=== PATIENT | female | born 1935 | race Caucasian/White ===

== ENCOUNTER 2024-01-23 10:27 | Outpatient (CLI) | payer MEDICARE, BC, SELFPAY ==
[2024-01-23 15:29] LABS: Appearance Urine Clear (Clear); Bacteria Urine None Seen /hpf; Bilirubin Urine Negative (Negative); Blood Urine Negative (Negative); Color Urine Yellow (Yellow); Glucose Urine UA Negative (Negative); Ketones Urine Negative (Negative); Leukocyte Esterase Ur 1+ LEU/UL (Negative); Need Manual Microscopic Reviewed; Nitrate Urine Negative (Negative); Non Pathogenic Casts 0-2; Protein Urine Negative (Negative); RBC Urine 0-2 /hpf (0-2); Squamous Epithelial Cell Urine None Seen /hpf (Few); Urobilinogen Urine 0.2 mg/dL (<2.0); WBC Urine 0-5 /hpf (0-3); pH Urine 7.5 (5.0-9.0)
[2024-01-23 15:36] LABS: Add Urine Microscopic? YES
== END 2024-01-23 10:28 | disposition home or self-care (01) ==
PROVIDERS: PCP Family Medicine; Visit Provider Family Medicine
DX: D64.9 Anemia, unspecified (principal); E78.2 Mixed hyperlipidemia; F41.9 Anxiety disorder, unspecified; I10 Essential (primary) hypertension
CPT/HCPCS: 81001

== ENCOUNTER 2024-05-21 11:59 | Emergency (ER) | payer MEDICARE, BC, SELFPAY ==
--- NOTE | ~2024-05-21 | XR_ITS ---
Thoracic spine: Clinical Indication: Pain AP and lateral views were performed. No fracture is seen. There is relative kyphosis of the thoracic spine. There is moderate degenerative disc narrowing throughout the thoracic spine. Paravertebral soft tissues appear normal. Impression: Moderate degenerative spondylosis. No acute fracture or sublocation evident. Reviewed, dictated and finalized at [facility]. Impression: Moderate degenerative spondylosis. No acute fracture or sublocation evident.
--- NOTE | ~2024-05-21 | XR_ITS ---
AP and oblique views of the right ribs Clinical History: Pain Findings: There are acute fractures of the posterior right seventh and eighth ribs. Lungs are clear, without focal consolidation or pleural effusion. Cardiomediastinal contour is within normal limits. S oft tissues are unremarkable. Impression: Acute fractures of the posterior right seventh and eighth ribs. Clear lungs. Reviewed, dictated and finalized at location . Impression: Acute fractures of the posterior right seventh and eighth ribs. Clear lungs.
--- NOTE | ~2024-05-21 | XR_ITS ---
Right Shoulder Technique: AP and scapular Y views were obtained. Clinical History: Pain Findings: No fracture or dislocation is seen. Osseous alignment is anatomic. The glenohumeral and acr omioclavicular joints demonstrate mild degenerative change. Soft tissues are unremarkable. Impression: Mild degenerative changes, as above. Reviewed, dictated and finalized at location . Impression: Mild degenerative changes, as above.
[2024-05-21 12:04] VITALS: BP 141/74; PULSE 73; RESP 18; O2SAT 97
--- NOTE | 2024-05-21 12:35 | ED.FALL ---
HPI - Fall General Chief Complaint: Fall Stated Complaint: fall Time Seen by Provider: 05/21/24 12:02 History of Present Illness HPI Narrative: Patient is an 88-year-old female who presents ER with posterior right shoulder pain and right-sided rib discomfort. Patient was closing her ports door when she fell backwards 1 week ago. Did not strike her head or lose consciousness. She has bruising over her right hip but has no pain there no difficulty with ambulation. No pain with deep breath. No dyspnea. No hemoptysis. No fevers or chills or sweats. She maintains full range of motion of the right shoulder. Just has discomfort with certain movements. Related Data Home Medications Medication Instructions Recorded Confirmed aspirin 81 mg tablet,delayed 81 mg PO DAILY 08/15/19 01/23/24 release multivitamin 1 tablet PO DAILY 08/15/19 01/23/24 cetirizine 10 mg tablet (Zyrtec) 10 mg PO DAILY 09/06/19 01/23/24 calcium carbonate 600 mg PO DAILY 07/18/22 01/23/24 ferrous sulfate 325 mg (65 mg 325 mg PO DAILY 07/18/22 01/23/24 iron) tablet Allergies Allergy/AdvReac Type Severity Reaction Status Date / Time Sulfa (Sulfonamide Allergy Unknown unknown Verified 12/07/23 10:50 Antibiotics) Review of Systems Review of Systems: All systems reviewed & are unremarkable except as noted in HPI and below Constitutional: Constitutional: Reports no additional constitutional complaints ENT: Reports system reviewed and no additional complaints, except as documented Cardiovascular: Cardiovascular: Reports no additional cardiovascular complaints Respiratory: Respiratory: Reports no additional respiratory complaints Musculoskeletal: Musculoskeletal: Reports back pain, Reports myalgias, Reports arthralgias, Denies joint swelling and Denies muscle cramps Integumentary/Breasts: Skin/Breast: Reports system reviewed and no additional complaints, except as docu [facility] Past Medical History Medical History (Updated 05/21/24 @ 14:05 by Malick Donaldson MD) Anemia Anxiety Arthritis H/O: CVA (cerebrovascular accident) Hemiplegia, unspecified affecting unspecified side HTN (hypertension) Kyphosis Left hand fracture Left knee DJD Left knee pain Mixed hyperlipidemia Poor balance Right tibial fracture x2 Shingles Uterine mass Weakness Surgical History Surgical History H/O: hysterectomy History of open reduction and internal fixation (ORIF) procedure Right lower leg x2 History of total right knee replacement Hx of tonsillectomy Family History Family History Other Diabetes mellitus Family history of arthritis Family history of malignant neoplasm Hypertension Social History Social History Smoking status: Never smoker Second hand tobacco smoke exposure: No Alcohol intake: never Substance use: never Substance use type: does not use Living arrangements: with family Occupation/Education: retired Gender identity (if verbalized by the patient): Female Sexual Orientation (if Verbalized by the Patient): Straight or Heterosexual Exam Narrative: GENERAL: Well-appearing, well-nourished, and in no acute distress. HEAD: Normocephalic, atraumatic. ENT: Mucous membranes moist. NECK: Supple. CHEST: Clear to auscultation. No respiratory distress. No point tenderness or bruising. HEART: Regular rate and rhythm. Normal peripheral pulses. EXTREMITIES: Normal range of motion. No edema. Contussion over right iliac wing SKIN: Warm, dry, no rash. NEURO: Alert and oriented x3. PSYCH: Normal mood and affect. Course Course Emergency Course: Patient resting comfortably. Informed of imaging results including her rib fractures on the right side at 7. 8. Patient without hypoxia. Pain controlled with Tylenol at home. Return precautions given. Vital Signs Vi
[2024-05-21 14:40] VITALS: TEMP 36.6
== END 2024-05-21 14:44 | disposition home or self-care (01) ==
PROVIDERS: Emergency Provider Emergency Medicine; PCP Family Medicine
DX: S22.41XA Multiple fractures of ribs, right side, initial encounter for closed fracture (principal); Z96.651 Presence of right artificial knee joint; Z90.710 Acquired absence of both cervix and uterus; M47.814 Spondylosis without myelopathy or radiculopathy, thoracic region; W18.39XA Other fall on same level, initial encounter
CPT/HCPCS: 71046; 71100; 72072; 73030; 99284

== ENCOUNTER 2024-07-24 12:09 | Outpatient (CLI) | payer MEDICARE, BC, SELFPAY ==
[2024-07-24 13:08] LABS: Alanine Aminotransferase 19 U/L (6-35); Alkaline Phosphatase 82 U/L (38-126); Anion Gap 7 mmol/L (4-12); Aspartate Amino Transferase 29 U/L (14-36); Bilirubin,Total 0.7 mg/dL (0.2-1.3); Blood Urea Nitrogen 12 mg/dL (7-17); Calcium 9.2 mg/dL (8.4-10.2); Carbon Dioxide 25 mmol/L (22-30); Chloride 98 mmol/L (98-107); Estimated Glomerular Filt Rate > 60; Glucose 95 mg/dL (65-110); Sodium 130 mmol/L (137-145)
== END 2024-07-24 12:10 | disposition home or self-care (01) ==
PROVIDERS: PCP Family Medicine; Visit Provider Family Medicine
DX: I10 Essential (primary) hypertension (principal)
CPT/HCPCS: 36415; 80053

== ENCOUNTER 2025-01-28 10:11 | Outpatient (CLI) | payer MEDICARE, BC, SELFPAY ==
[2025-01-28 10:43] LABS: Hematocrit 39.4 % (37.0-47.0); Hemoglobin 12.6 g/dL (12.0-15.0); Mean Corpuscular Hemoglobin 27.3 pg (26-34); Mean Corpuscular Volume 85.3 fl (80-100); Platelet Count Result 359 k/mm3 (150-375); Red Blood Count 4.62 M/mm3 (4.2-5.4); Red Cell Distribution Width 14.5 % (11.5-14.5); White Blood Count 6.6 K/mm3 (4.5-10.0)
--- OUTSIDE RECORDS SUMMARY | 2025-01-28 10:52 | XMS_ITS ---
Author Name Auto Generated, Auto Generated Organization [facility] Address [address] [place] [address] Phone [phone] Care Team Providers Care Interventional Physician Name Role Phone Braydon Castro Unavailable Santiago Feliciano Unavailable [phone] Functional Status No Results Mental Status No Results Allergies and Intolerances Name Onset Date Reaction Severity Sulfa (Sulfonamide Antibiotics) (Allergy) Sun 14:23:00 EDT 2018 Medications Medication Directions Start Date End Date aspirin 81 mg chewable tablet 1tab (TABLET,CHEWABLE) Oral Every 1 Day SunMay 12 01:00:00 EDT 2018Jun 16 01:00:00 EDT 2018 Tylenol 325 mg capsule 2caps (CAPSULE) O ral Every 6 Hours, PRN SunMay 12 01:00:00 EDT 2018Jun 16 01:00:00 EDT 2018 Calcium 600 + D(3) 600 mg (1,500 mg)-200 unit tablet 1tab (TABLET) Oral Every 1 Day SunMay 12 01:00:00 EDT 2018Jun 16 01:00:00 ED2018 atorvastatin 40 mg tablet 1tab (TABLET) Oral Every 1 Day SunMay 12 01:00:00 EDT 2018Jun 16 01:00:00 EDT 2018 ferrous sulfate 324 mg (65 mg iron) tablet,delayed release 1tab (TABLET, DELAYED RELEASE (ENTERIC COATED Oral Every 1 Day SunMay 12 01:00:00 EDT 2018Jun 16 01:00:00 EDT 2018 fenofibrate 160 mg tablet 1tab (TABLET) Oral Every 1 Day SunMay 12 01:00:00 EDT 2018Jun 16 01:00:00 EDT 2018 fondaparinux 2.5 mg/0.5 mL subcutaneous solution syringe 1 (SYRINGE (ML)) Subcutaneous Every 1 Day SunMay 12 01:00:00 ED2018May 14 00:59:00 ED2018 Centrum Silver Ultra Women's tablet 1tab (TABLET) Oral Every 1 Day SunMay 12 01:00:00 ED2018Jun 16 01:00:00 ED2018 lisinopril 2.5 mg tablet 1tab (TABLET) O ral Every 1 Day SunMay 12 01:00:00 ED2018Jun 16 01:00:00 ED2018 clopidogrel 75 mg tablet 1tab (TABLET) O ral Every 1 Day SunMay 14 01:00:00 ED2018 [place] Jun 15 00:59:00 ED2018 Miralax 17 gram/dose oral powder 1 pkt (POWDER (GRAM)) Oral Every 1 Day SunMay 12 01:00:00 ED2018Jun 16 01:00:00 ED2018 escitalopram 5 mg tablet 1tab (TABLET) O ral Every 1 Day SunMay 12 01:00:00 ED2018Jun 16 01:00:00 ED2018 ALPRAZolam 0.25 mg tablet 1tab (TABLET) Oral 2 Times Daily, PRN SunMay 12 01:00:00 ED2018Jun 16 01:00:00 ED2018 ALPRAZolam 0.25 mg tablet 1 tab TABLET O ral PRN 2 Times Daily anxiety SunMay 01 13:00:00 2018May 10 01:00:00 2018 escitalopram 5 mg tablet 1 tab TABLET Or al 1 Time Daily depression SunMay 01 13:00:00 2018May 10 01:00:00 ED2018 acetaminophen 325 mg tablet 650 mg TABLET Oral PRN Every 6 Hours pain rate 1-3 SunApr 30 14:25:00 2018May 10 01:00:00 ED2018 ALPRAZolam 0.25 mg tablet 1 tab TABLET O ral PRN 2 Times Daily anxiety SunApr 30 14:25:00 2018May 01 13:19:00 ED2018 Aspirin Childrens 81 mg chewable tablet 1 tab TABLET,CHEWABLE Oral 1 Time Daily SunMay 01 09:00:00 2018May 10 01:00:00 ED2018 atorvastatin 40 mg tablet 1 tab TABLET O ral 1 Time Daily SunMay 01 09:00:00 2018May 10 01:00:00 ED2018 Calcium 600 + D(3) 600 mg calcium-200 unit capsule 1 cap CAPSULE Oral 1 Time Daily SunMay 01 09:00:00 ED2018May 10 01:00:00 ED2018 Lexapro 5 mg tablet 1 tab TABLET Oral 1 Time Daily SunMay 01 09:00:00 ED2018May 01 13:22:00 ED2018 fenofibrate 160 mg tablet 1 tab TABLET O ral 1 Time Daily SunMay 01 09:00:00 ED2018May 10:00:00 ED2018 ferrous sulfate 324 mg (65 mg iron) tablet,delayed release 1 tab TABLET, DELAYED RELEASE (ENTERIC COATED) Oral 1 Time Daily SunMay 01 09:00:00 ED2018May 10:00:00 ED2018 fondaparinux 2.5 mg/0.5 mL subcutaneous solution syringe 2.5 mg SYRINGE (ML) Subcutaneous Every 24 Hours for 13 Days blood thinner SunMay 01 09:00:00 ED2018May 10 01:00:00 ED2018 lisinopril 2.5 mg tablet 1 tab TABLET Or al 1 Time Daily SunMay 01 09:00:00 ED2018May 10 01:00:00 ED2018 Centrum Silver Ultra Women's tablet 1 tab TABLET Oral 1 Time Daily SunMay 01 09:00:00 ED2018May 10 01:00:00 ED2018 polyethylene glycol 3350 17 gram oral powder packet 17 gram POWDER IN PACKET (EA) Oral 1 Time Daily constipation SunMay 01 09:00:00 ED2018May 10 01:00:00 ED2018 clopidogrel 75 mg tablet 1 tab TABLET Or al 1 Time Daily for 30 Days blood thinner SunMay 14 09:00:00 EDT 2018May 10 01:00:00 EDT 2018 TUBErsol 5 tub. unit/0.1 mL intradermal injection solution 0.1 ml VIAL (ML) Intradermal 1 Time Weekly for 2 Weeks (PPD) 1st injection upon admission. Read between 48 and 72 hours and give 2nd injection 1 week after the 1st if result is negative. If positive result, proceed with chest x-ray to rule out active disease. SunMay 01 13:00:00 ED2018May 10 01:00:00 EDT 2018 TUBErsol 5 tub. unit/0.1 mL intradermal injection solution Read Results VIAL (ML) Other 1 Time Weekly for 2 Weeks Read results between 48-72 hours after 1st and 2nd 1 week apart. If positive do chest x-ray to rule out active disease. SunMay 03 13:00:00 EDT 2018 Sat May 10 01:00:00 EDT 2018 Problems Active Concerns * Displaced intertrochanteric fracture of right femur, subsequent encounter for closed fracture with routine healing* Code: * Start Date: SunApr 30 00:00:00 EDT 2018 * End Date: * Text: * Essential (primary) hypertension* Code: * Start Date: SunApr 30 00:00:00 EDT 2018 * End Date: * Text: * Iron deficiency anemia secondary to blood loss (chronic)* Code: * Start Date: SunApr 30 00:00:00 EDT 2018 * End Date: * Text: * Hyperlipidemia, unspecified* Code: * Start Date: SunApr 30 00:00:00 EDT 2018 * End Date: * Text: * Anxiety disorder, unspecified* Code: * Start Date: SunApr 30 00:00:00 EDT 2018 * End Date: * Text: * Presence of other bone and tendon implants* Code: * Start Date: SunApr 30 00:00:00 EDT 2018 * End Date: * Text: * Presence of right artificial knee joint* Code: * Start Date: SunApr 30 00:00:00 EDT 2018 * End Date: * Text: * Other specified fracture of right pubis, subsequent encounter for fracture with routine healing* Code: * Start Date: SunApr 30 00:00:00 EDT 2018 * End Date: * Text: * Repeated falls* Code: * Start Date: SunApr 30 00:00:00 EDT 2018 * End Date: * Text: * Hemiplegia and hemiparesis following cerebral infarction affecting right dominant side* Code: * Start Date: SunApr 30 00:00:00 EDT 2019 * End Date: * Text: * Constipation, unspecified* Code: * Start Date: SunApr 30 00:00:00 EDT 2018 * End Date: * Text: * Acute posthemorrhagic anemia* Code: * Start Date: SunApr 30 00:00:00 EDT 2018 * End Date: * Text: Reason for Referral Past Medical History
[2025-01-28 10:53] LABS: Add Urine Microscopic? YES; Appearance Urine Clear (Clear); Bacteria Urine None Seen /hpf; Bilirubin Urine Negative (Negative); Blood Urine Negative (Negative); Color Urine Yellow (Yellow); Glucose Urine UA Negative (Negative); Ketones Urine Negative (Negative); Leukocyte Esterase Ur 1+ LEU/UL (Negative); Need Manual Microscopic Reviewed; Nitrate Urine Negative (Negative); Non Pathogenic Casts 0-2; Protein Urine Negative (Negative); RBC Urine 0-2 /hpf (0-2); Specific Grav Ur 1.008 (1.001-1.035); Squamous Epithelial Cell Urine None Seen /hpf (Few); Urobilinogen Urine 0.2 mg/dL (<2.0); WBC Urine 0-5 /hpf (0-3)
[2025-01-28 10:55] LABS: Alanine Aminotransferase 19 U/L (6-35); Albumin Level 4.3 g/dL (3.5-5.1); Alkaline Phosphatase 68 U/L (38-126); Anion Gap 10 mmol/L (4-12); Aspartate Amino Transferase 29 U/L (14-36); Bilirubin,Total 0.4 mg/dL (0.2-1.3); Blood Urea Nitrogen 11 mg/dL (7-17); Calcium 9.4 mg/dL (8.4-10.2); Carbon Dioxide 26 mmol/L (22-30); Chloride 96 mmol/L (98-107); Cholesterol 141 mg/dL (0-200); Estimated Glomerular Filt Rate > 60; Glucose 89 mg/dL (65-110); HDL Direct 62 mg/dL; Potassium 4.3 mmol/L (3.4-5.0); Sodium 132 mmol/L (137-145); Triglycerides 76 mg/dL (<150)
[2025-01-28 11:06] LABS: LDL Cholesterol Direct 47 mg/dL
== END 2025-01-28 10:12 | disposition home or self-care (01) ==
LOC: ANHLAB 10:14
PROVIDERS: PCP Family Medicine; Visit Provider Family Medicine
DX: I69.30 Unspecified sequelae of cerebral infarction (principal); E78.2 Mixed hyperlipidemia; I10 Essential (primary) hypertension; R53.83 Other fatigue
CPT/HCPCS: 36415; 80053; 80061; 81001; 84443; 85027

== ENCOUNTER 2025-05-05 11:20 | Outpatient (CLI) | payer MEDICARE, BC, SELFPAY ==
--- NOTE | ~2025-05-05 | US_ITS ---
EXAMINATION:US venous doppler LE RT INDICATION:Localized edema TECHNIQUE: Multiple grayscale, color flow and Doppler images of the right lower extremity deep venous systems were obtained and reviewed. COMPARISON:No prior studies for comparison. FINDINGS: The common femoral, superficial femoral and popliteal veins demonstrate normal respiratory variation, augmentation and compressibility. Color flow is also seen within the posterior tibial, pe roneal, greater saphenous and profunda veins. IMPRESSION: 1: No lower extremity deep venous thrombosis. Reviewed, dictated and finalized at location A.
--- OUTSIDE RECORDS SUMMARY | 2025-05-05 12:13 | XMS_ITS ---
Author Name Auto Generated, Auto Generated Organization [facility] Address [address] [place] [address] Phone [phone] Care Team Providers Care Derrick Helper Name Role Phone Braydon Castro Unavailable [phone] Santiago Feliciano Unavailable [phone] Functional Status No Results Mental Status [...] Every 1 Day SunMay 14 01:00:00 ED2018 [place] Jun 15 00:59:00 ED2018 Miralax 17 gram/dose [...]
--- OUTSIDE RECORDS SUMMARY | 2025-05-05 12:13 | XMS_ITS ---
Author Name Auto Generated, Auto Generated Organization [facility] Address [address] [place] [address] Phone [phone] Care Team Providers Care Prosthetic Aides Teacher Name Role Phone Braydon Castro Unavailable Santiago Feliciano Unavailable Functional Status No Results Mental Status No [...] Every 1 Day SunMay 14 01:00:00 ED2018 [place] Jun 15 00:59:00 ED2018 Miralax 17 gram/dose [...]
== END 2025-05-05 11:21 | disposition home or self-care (01) ==
PROVIDERS: PCP Family Medicine; Visit Provider Family Medicine
DX: R60.0 Localized edema (principal)
CPT/HCPCS: 93971

== ENCOUNTER 2025-07-23 11:34 | Emergency (ER) | payer MEDICARE, BC, SELFPAY ==
--- NOTE | ~2025-07-23 | XR_ITS ---
EXAMINATION: XR chest 2V, 07/23/2025 12:20 CDT HISTORY: weakness COMPARISON: No comparisons available. Technique: 2 views obtained. Findings: Mild pulmonary venous congestion. No pneumothorax. Mild cardiomegaly. Large hiatal hernia. Remote right rib fractures. Impression: Mild CHF Reviewed, dictated and finalized at location P. Impression: Mild CHF
[2025-07-23 11:32] VITALS: BP 140/82; PULSE 83; RESP 20; TEMP 36.5; O2SAT 97
--- NOTE | 2025-07-23 11:38 | ECG_ITS ---
Test Date: 2025-07-23 11:48:32 Measurements Intervals Shafer Rate: 80 P: 12 VA: 141 QRS: 11 QRSD: 90 T: 37 QT: 363 QTc: 420 Interpretive Statements SINUS RHYTHM EARLY PRECORDIAL R/S TRANSITION BASELINE ARTIFACT- I, II, III, AVR, AVL, AVF, V1-V6 BORDERLINE ECG No previous ECG available for comparison Electronically Signed On 07-23-2025 11:50:33 CDT by Pravin Saavedra D.O.
[2025-07-23 11:51] LABS: Hematocrit 36.2 % (37.0-47.0); Hemoglobin 11.7 g/dL (12.0-15.0); Immature Granulocyte Percent A 0.3 % (0-0.5); Lymphocytes Absolute Auto 1.08 K/mm3 (0.9-3.2); Mean Corpuscular HGB Conc 32.3 g/dl (32-36); Mean Corpuscular Hemoglobin 26.8 pg (26-34); Mean Corpuscular Volume 82.8 fl (80-100); Nucleated Red Blood Cells Absolute Auto 0.000 K/mm3 (0.0-0.012); Nucleated Red Blood Cells Perc 0.0 % (0.0-0.2); Platelet Count Result 254 k/mm3 (150-375); Red Blood Count 4.37 M/mm3 (4.2-5.4); White Blood Count 6.1 K/mm3 (4.5-10.0)
[2025-07-23 12:12] LABS: Alanine Aminotransferase 17 U/L (6-35); Albumin Level 3.7 g/dL (3.5-5.1); Alkaline Phosphatase 74 U/L (38-126); Anion Gap 9 mmol/L (4-12); Aspartate Amino Transferase 38 U/L (14-36); Bilirubin,Total 0.4 mg/dL (0.2-1.3); Blood Urea Nitrogen 10 mg/dL (7-17); Calcium 8.5 mg/dL (8.4-10.2); Carbon Dioxide 22 mmol/L (22-30); Chloride 96 mmol/L (98-107); Estimated CRCL calculation 66 ml/min; Estimated Glomerular Filt Rate > 60; Glucose 93 mg/dL (65-110); Potassium 4.0 mmol/L (3.4-5.0); Sodium 127 mmol/L (137-145); Total Protein 6.3 g/dL (6.3-8.2)
[2025-07-23 12:55] LABS: Add Urine Microscopic? NO; Appearance Urine Clear (Clear); Glucose Urine UA Negative (Negative); Leukocyte Esterase Ur Negative LEU/UL (Negative); Nitrate Urine Negative (Negative); Specific Grav Ur 1.010 (1.001-1.035)
[2025-07-23 13:52] VITALS: BP 131/72; PULSE 72; RESP 22; O2SAT 98
--- NOTE | 2025-07-23 14:31 | ED.WEAKNESS ---
HPI - Weakness General Chief complaint: Weakness Stated complaint: weakness Time Seen by Provider: 07/23/25 12:30 Source: patient Mode of arrival: EMS Limitations: no limitations History of Present Illness HPI Narrative: 89-year-old with a history of hypertension, hyperlipidemia status post right knee replacement 22 years ago in was brought in from [facility] by ambulance with the complaints of fall generalized weakness. Patient states that she did not want to come but she was forced to come to the ER. She denies having any chest pain or shortness of breath. No history of nausea, vomiting or diarrhea. MD Complaint: generalized weakness Onset (ago): day(s) (1) Location: generalized Severity: moderate Relieving factors: none Exacerbating factors: none Related Data Home Medications ?Medication ?Instructions ?Recorded ?Confirmed ?Last Taken ?Type aspirin 81 mg tablet,delayed 81 mg PO DAILY 08/15/19 05/05/25 Unknown History release multivitamin 1 tablet PO DAILY 08/15/19 05/05/25 Unknown History cetirizine 10 mg tablet (Zyrtec) 10 mg PO DAILY 09/06/19 05/05/25 Unknown History calcium carbonate 600 mg PO DAILY 07/18/22 05/05/25 Unknown History ferrous sulfate 325 mg (65 mg 325 mg PO DAILY 07/18/22 05/05/25 Unknown History iron) tablet Allergies Allergy/AdvReac Type Severity Reaction Status Date / Time Sulfa (Sulfonamide Allergy Unknown unknown Verified 06/08/25 14:45 Antibiotics) Review of Systems Review of Systems: All systems reviewed & are unremarkable except as noted in HPI and below Constitutional: Constitutional: Reports no additional constitutional complaints Eyes: Eyes: Reports no additional eye complaints ENT: Reports system reviewed and no additional complaints, except as documented Cardiovascular: Cardiovascular: Reports no additional cardiovascular complaints Respiratory: Respiratory: Reports no additional respiratory complaints Gastrointestinal: Gastrointestinal: Reports no additional gastrointestinal complaints Musculoskeletal: Musculoskeletal: Reports no additional musculoskeletal complaints PMFSH Past Medical History Medical History Effusion of knee joint Leg length discrepancy Foot drop Valgus deformity, not elsewhere classified, left knee Poor balance Weakness Left knee DJD Kyphosis Left knee pain Uterine mass Shingles Left hand fracture Right tibial fracture x2 Arthritis HTN (hypertension) H/O: CVA (cerebrovascular accident) Hemiplegia, unspecified affecting unspecified side Anemia Mixed hyperlipidemia Anxiety Surgical History Surgical History History of open reduction and internal fixation (ORIF) procedure Right lower leg x2 History of total right knee replacement H/O: hysterectomy Hx of tonsillectomy Family History Family History Other Diabetes mellitus Family history of arthritis Family history of malignant neoplasm Hypertension Social History Social History Smoking status: Never smoker Second hand tobacco smoke exposure: No Alcohol intake: never Substance use: never Substance use type: does not use Do You Feel Safe in your Home?: Yes Lack of Transportation: No Lack of Food: Never True Current Housing: I Have Housing Concerned About Future Housing: No Difficulty Paying Gas/Electric Bills: No Difficulty Paying for Meds: No Currently Unemployed: YES Education: Don't Know Difficulty w/ Childcare or Family Care: No Living arrangements: with family Occupation/Education: retired Gender identity (if verbalized by the patient): Female Sexual Orientation (if Verbalized by the Patient): Straight or Heterosexual Exam Narrative: GENERAL: Well-appearing, well-nourished, and in no acute distress. HEAD: Normocephalic, atraumatic. EYES: PERRLA and EOMI. ENT: Nares clear, no rhinorrhea or epistaxis. Mucous membranes moist. NECK: Supple. CHEST: Clear to auscultation. No respiratory distress. HEART: Regular rate and rhythm. No murmur heard. Normal peripheral pulses. ABDOMEN: Soft, nontender, nondistended, normal active bowel sounds. EXTREMITIES: Normal range of motion. No edema. Limited ROM of the right knee SKIN: Warm, dry, has diaper rash. NEURO: No focal deficits. Alert and oriented x3. PSYCH: Normal mood and affect. Course Course Emergency Course: Informed patient's daughter and patient about her lab work, chest x-ray findings. A shared decision made to discharge her back to the correction consider physical therapy. Also advised frequent change in diapers or add a close and use antifungal cream or powder as prescribed Vital Signs Vital signs: Vital Signs Temperature 36.5 C 07/23/25 11:32 Pulse Rate 83 07/23/25 11:32 Respiratory Rate 20 07/23/25 11:32 Blood Pressure 140/82 07/23/25 11:32 Pulse Oximetry 97 07/23/25 11:32 Oxygen Delivery Room Air 07/23/25 11:32 Temperature 36.5 C 07/23/25 11:32 Pulse Rate 72 07/23/25 13:52 Respiratory Rate 22 H 07/23/25 13:52 Blood Pressure 131/72 07/23/25 13:52 Pulse Oximetry 98 07/23/25 13:52 Oxygen Delivery Room Air 07/23/25 11:32 MDM - Weakness Differential Diagnosis Differential diagnosis: Likely hypoglycemia, sepsis and dehydration Medical Records Attestation: I reviewed the patient's medical records. Lab Data Attestation: I reviewed the patient's lab results. 07/23/25 11:44 07/23/25 11:44 Labs: Lab Results 07/23/25 07/23/25 Range/Units 11:44 12:42 WBC 6.1 (4.5-10.0) K/mm3 RBC 4.37 (4.2-5.4) M/mm3 Hgb 11.7 L (12.0-15.0) g/dL Hct 36.2 L (37.0-47.0) % MCV 82.8 (80-100) fl MCH 26.8 (26-34) pg MCHC 32.3 (32-36) g/dl RDW 14.6 H (11.5-14.5) % Plt Count 254 (150-375) k/mm3 MPV 8.8 (7.4-10.4) fl Immature Gran % (Auto) 0.3 (0-0.5) % Neut % (Auto) 65.3 (45.5-73.1) % Lymph % (Auto) 17.6 L (18.3-44.2) % [place] % (Auto) 15.8 H (2.6-8.5) % Eos % (Auto) 0.7 (0-4.4) % Baso % (Auto) 0.3 (0.2-1.2) % Lymph # (Auto) 1.08 (0.9-3.2) K/mm3 [place] # (Auto) 1.0 H (0.1-0.6) K/mm3 Eos # (Auto) 0.0 (0-0.3) K/mm3 Baso # (Auto) 0.0 (0.0-0.1) K/mm3 Abs Immat Gran (auto) 0.02 (0.00-0.031) K/mm3 Absolute Neuts (auto) 4.0 (1.3-6.7) K/mm3 Absolute Nucleated RBC 0.000 (0.0-0.012) K/mm3 Nucleated RBC % 0.0 (0.0-0.2) % Sodium 127 L (137-145) mmol/L Potassium 4.0 (3.4-5.0) mmol/L Chloride 96 L (98-107) mmol/L Carbon Dioxide 22 (22-30) mmol/L Anion Gap 9 (4-12) mmol/L BUN 10 (7-17) mg/dL Creatinine 0.38 L (0.7-1.0) mg/dL Estim Creat Clear Calc 66 ml/min Estimated GFR > 60 (59 - ) Glucose 93 (65-110) mg/dL Calcium 8.5 (8.4-10.2) mg/dL Total Bilirubin 0.4 (0.2-1.3) mg/dL AST 38 H (14-36) U/L ALT 17 (6-35) U/L Alkaline Phosphatase 74 (38-126) U/L Total Protein 6.3 (6.3-8.2) g/dL Albumin 3.7 (3.5-5.1) g/dL Urine Color Yellow (Yellow) Urine Appearance Clear (Clear) Urine pH 7.0 (5.0-9.0) Ur Specific [place] 1.010 (1.001-1.035) Urine Protein Negative (Negative) mg/dL Urine Glucose (UA) Negative (Negative) mg/dL Urine Ketones Negative (Negative) mg/dL Ur Blood (Man) Negative (Negative) Urine Nitrate Negative (Negative) Urine Bilirubin Negative (Negative) Urine Urobilinogen 1.0 (<2.0) mg/dL Leukocyte Esterase Rfl Negative (Negative) NORBERT/UL Imaging Data Radiologist's impression: ITS Impressions Chest X-Ray 07/23/25 12:30 Impression: Mild CHF Discharge Plan Discharge Clinical Impression: Weakness, Acute hyponatremia, Salud albicans infection Patient Disposition: Home Condition: Stable Instructions: Diaper Rash (ED), Weakness (ED) Patient Language: Luxembourgish Prescriptions: New nystatin 100,000 unit/gram powder 1 applic topical BID Qty: 60 0RF No Action ferrous sulfate 325 mg (65 mg iron) tablet 325 mg PO DAILY calcium carbonate 600 mg calcium (1,500 mg) tablet 600 mg PO DAILY furosemide [Lasix] 20 mg tablet 20 mg PO QAM Qty: 30 0RF multivitamin Tablet 1 tablet PO DAILY aspirin 81 mg tablet,delayed release (DR/EC) 81 mg PO DAILY cetirizine [Zyrtec] 10 mg Tablet 10 mg PO DAILY lisinopril 2.5 mg tablet 2.5 mg PO DAILY Qty: 90 1RF atorvastatin 40 mg tablet 40 mg PO DAILY Qty: 90 2RF escitalopram oxalate 5 mg tablet See Rx Instructions .ROUTE .COMPLEX Qty: 90 2RF Dose Instruction: TAKE 1 TABLET BY MOUTH EVERY DAY Rx Instructions: TAKE 1 TABLET BY MOUTH EVERY DAY clopidogrel 75 mg tablet See Rx Instructions .ROUTE .COMPLEX Qty: 90 2RF Dose Instruction: TAKE 1 TABLET BY MOUTH EVERY DAY Rx Instructions: TAKE 1 TABLET BY MOUTH EVERY DAY fenofibrate 160 mg tablet See Rx Instructions .ROUTE .COMPLEX Qty: 90 0RF Dose Instruction: TAKE 1 TABLET BY MOUTH EVERY DAY Rx Instructions: TAKE 1 TABLET BY MOUTH EVERY DAY polyethylene glycol 3350 [Miralax] 17 gram/dose powder 17 g PO DAILY Qty: 119 5RF Follow-up/Referrals: Santiago Feliciano MD [Primary Care Provider, Family Practice] Time of Disposition: 14:33
== END 2025-07-23 15:49 ==
PROVIDERS: Emergency Provider Family Medicine; PCP Family Medicine
DX: B37.89 Other sites of candidiasis (principal); I10 Essential (primary) hypertension; E78.5 Hyperlipidemia, unspecified; E78.2 Mixed hyperlipidemia; R53.1 Weakness; E87.1 Hypo-osmolality and hyponatremia
CPT/HCPCS: 36415; 71046; 80053; 81003; 85025; 93005; 99283

== ENCOUNTER 2025-08-05 11:20 | Outpatient (CLI) | payer MEDICARE, BC, SELFPAY ==
[2025-08-05 12:07] LABS: Alanine Aminotransferase 15 U/L (6-35); Albumin Level 3.9 g/dL (3.5-5.1); Alkaline Phosphatase 90 U/L (38-126); Anion Gap 7 mmol/L (4-12); Aspartate Amino Transferase 25 U/L (14-36); Bilirubin,Total 0.4 mg/dL (0.2-1.3); Blood Urea Nitrogen 11 mg/dL (7-17); Calcium 9.1 mg/dL (8.4-10.2); Carbon Dioxide 25 mmol/L (22-30); Chloride 96 mmol/L (98-107); Estimated Glomerular Filt Rate > 60; Glucose 96 mg/dL (65-110); Potassium 4.5 mmol/L (3.4-5.0); Sodium 128 mmol/L (137-145); Total Protein 6.6 g/dL (6.3-8.2)
== END 2025-08-05 11:21 | disposition home or self-care (01) ==
LOC: ANHLAB 11:21
PROVIDERS: PCP Family Medicine; Visit Provider Student in an Organized Health Care Education/Training Program
DX: I10 Essential (primary) hypertension (principal); E87.1 Hypo-osmolality and hyponatremia
CPT/HCPCS: 36415; 80053